=== PATIENT | male | born 1955 | race Caucasian/White ===

== ENCOUNTER 2019-09-09 14:14 | Inpatient (IN) ==
[2019-09-09] MEDS ORDERED: SODIUM CHLORIDE 0.9% 1,000 ML IV STA (14:29)
[2019-09-09] MEDS ORDERED: ALUM/MAG/SIMETH/LIDO VISC 1:1 30 ML BOTTLE PO STA (14:54)
[2019-09-09] MEDS ORDERED: PANTOPRAZOLE 40 MG VIAL IV STA (14:54)
[2019-09-09] MEDS ORDERED: ONDANSETRON 4 MG/2 ML VIAL IV STA (14:54)
[2019-09-09 15:09] LABS: Basophils # 0.1 10*3/uL (0.0-0.2); Basophils % 1.4 % (0.0-0.8); Eosinophils # 0.4 10*3/uL (0.0-0.87); Eosinophils % 5.9 % (0.00-10.9); Hematocrit 45.7 VOL% (42.0-52.0); Hemoglobin 15.4 GM/DL (14.0-18.0); Immature Granulocytes % 0.6 %; Immature Granulocytes Absolute 0.04 #; Lymphocytes # 2.9 10*3/uL (1.4-4.0); Lymphocytes % 43.6 % (21.2-54.2); Mean Corpuscular HGB Conc 33.7 GM/DL (32-36); Mean Corpuscular Volume 93.1 FL (87-102); Mean Platelet Volume 10.3 FL (9.6-12.0); Monocytes % 7.2 % (1.7-12.7); Neutrophils % 41.3 % (38.7-73.9); Platelet Count 176 T/CUMM (130-400); Red Blood Count 4.91 MC/CUMM (3.8-5.5); Red Cell Distribution Width 12.8 % (9.3-17.3); White Blood Count 6.6 T/CUMM (4-12)
[2019-09-09 15:27] LABS: Bilirubin,Total 2.5 MG/DL (0.2-1.0); Calcium 9.2 MG/DL (8.5-10.1); Osmolality,Calculated 289.3 MOS/KG (273-304); Total Protein 7.4 G/DL (6.4-8.3)
[2019-09-09 18:26] LABS: Apearance,Urine CLEAR (Clear); Bilirubin,Urine Negative (Negative); Blood, Urine Negative (Negative); Calcium Oxalate Crystals,Urine Occasional /HPF (Few); Glucose,Urine (UA) Negative (Negative); Hyaline Casts,Urine 17 /LPF (0-3); Ketones,Urine Negative (Negative); Mucus,Urine Occasional /LPF (Occasional); Nitrite,Urine Negative (Negative); Protein,Urine Negative; RBC,Urine 2 /HPF (0-4); Squamous Epithelial Cell,Urine Occasional /HPF (0-10); Urine Color Yellow (Yellow); Urine Specific Gravity 1.034 (1.001-1.035); WBC,Urine 2 /HPF (0-6)
[2019-09-09] MEDS ORDERED: MORPHINE 4 MG/1 ML VIAL IV PRN (18:37)
[2019-09-09] MEDS ORDERED: ACETAMINOPHEN 325 MG TABLET PO PRN (18:37)
[2019-09-09] MEDS ORDERED: ONDANSETRON 4 MG/2 ML VIAL IV PRN (18:37)
[2019-09-09] MEDS ORDERED: LORazepam 2 MG/1 ML VIAL IV PRN (18:41)
[2019-09-09 20:35] LABS: CKMB % 3.4 %; Troponin I < 0.015 NG/ML (0.00-0.045)
[2019-09-09] MEDS: MULTIVITAMIN INJ 10 ML in SODIUM CHLORIDE 0.9% 1,000 ML IV SCH (20:43)
[2019-09-09] MEDS: SODIUM CHLORIDE 0.9% 1,000 ML IV SCH (20:43)
[2019-09-09 21:25] LABS: Apearance,Urine CLEAR (Clear); Bilirubin,Urine Negative (Negative); Blood, Urine Negative (Negative); Glucose,Urine (UA) Negative (Negative); Hyaline Casts,Urine 1 /LPF (0-3); Ketones,Urine Negative (Negative); Mucus,Urine Occasional /LPF (Occasional); Nitrite,Urine Negative (Negative); Protein,Urine Negative; RBC,Urine 1 /HPF (0-4); Squamous Epithelial Cell,Urine Occasional /HPF (0-10); Urine Color Yellow (Yellow); Urine Specific Gravity 1.043 (1.001-1.035); Urine Urobilinogen < 2.0 EU/DL (0.2-1.0); WBC,Urine <1 /HPF (0-6)
[2019-09-09] MEDS: CIPROFLOXACIN INJ 200 MG in PREMIX 1 EACH IV SCH (21:58)
[2019-09-09] MEDS: metroNIDAZOLE INJ 500 MG in PREMIX 1 EACH IV SCH (21:58)
[2019-09-10] MEDS: SODIUM CHLORIDE 0.9% 1,000 ML IV SCH ×4 (06:31→21:05)
[2019-09-10] MEDS: metroNIDAZOLE INJ 500 MG in PREMIX 1 EACH IV SCH ×3 (06:34→19:49)
[2019-09-10 06:36] LABS: Albumin 3.5 G/DL (3.4-5.0); Bilirubin,Total 2.1 MG/DL (0.2-1.0); Calcium 8.7 MG/DL (8.5-10.1); Osmolality,Calculated 287.1 MOS/KG (273-304); Risk Ratio 3.79; Total Protein 6.8 G/DL (6.4-8.3); Troponin I < 0.015 NG/ML (0.00-0.045); VLDL CHOLESTEROL 30.2 MG/DL
[2019-09-10 07:03] LABS: Eosinophils # 0.2 10*3/uL (0.0-0.87); Eosinophils % 5.1 % (0.00-10.9); Hematocrit 41.1 VOL% (42.0-52.0); Hemoglobin 13.5 GM/DL (14.0-18.0); Immature Granulocytes % 0.3 %; Immature Granulocytes Absolute 0.01 #; Lymphocytes # 1.2 10*3/uL (1.4-4.0); Lymphocytes % 40.2 % (21.2-54.2); Mean Corpuscular HGB Conc 32.8 GM/DL (32-36); Mean Corpuscular Volume 94.9 FL (87-102); Mean Platelet Volume 10.1 FL (9.6-12.0); Monocytes % 6.4 % (1.7-12.7); Red Blood Count 4.33 MC/CUMM (3.8-5.5); Red Cell Distribution Width 12.8 % (9.3-17.3)
[2019-09-10 07:04] LABS: Platelet Count 87 T/CUMM (130-400)
[2019-09-10 07:38] LABS: Hypochromasia 1+
[2019-09-10 07:39] LABS: Platelet Estimate Decreased
[2019-09-10] MEDS: CIPROFLOXACIN INJ 200 MG in PREMIX 1 EACH IV SCH ×2 (08:40→20:57)
[2019-09-10] MEDS: THIAMINE 200 MG/2 ML VIAL IV SCH (08:40)
[2019-09-10] MEDS: FOLIC ACID INJ 1 MG in SYRINGE 1 EACH IV SCH (08:41)
[2019-09-10] MEDS: PANTOPRAZOLE 40 MG VIAL IV SCH (08:41)
[2019-09-10] MEDS ORDERED: DEXTROSE 10% 25 GM/250 ML BAG IV PRN (09:02)
[2019-09-10] MEDS ORDERED: GLUCAGON 1 MG VIAL IM PRN (09:02)
[2019-09-10] MEDS ORDERED: BISACODYL 5 MG TABLET PO ONE (12:00)
[2019-09-10] MEDS ORDERED: POLYETHYLENE GLYCOL POWDER 255 GM BOTTLE PO ONE (13:00)
[2019-09-10] MEDS: INSULIN REGULAR 100 UNIT/ML SUBCUT SCH ×2 (13:45→18:27)
[2019-09-10] MEDS: carvediloL 6.25 MG TABLET PO SCH ×2 (14:51→17:35)
[2019-09-10] MEDS ORDERED: HYDROCORTISONE 2.5% RECTAL CREAM 30 GM TUBE TOP PRN (17:03)
[2019-09-10] MEDS ORDERED: MAGNESIUM CITRATE 300 ML BOTTLE PO ONE (21:00)
[2019-09-10] MEDS: SIMVASTATIN 10 MG TABLET PO SCH (21:22)
[2019-09-10] MEDS: MULTIVITAMIN INJ 10 ML in SODIUM CHLORIDE 0.9% 1,000 ML IV SCH (22:57)
[2019-09-11] MEDS: INSULIN REGULAR 100 UNIT/ML SUBCUT SCH ×4 (00:54→17:18)
[2019-09-11 05:57] LABS: Basophils % 0.8 % (0.0-0.8); Eosinophils # 0.2 10*3/uL (0.0-0.87); Eosinophils % 7.2 % (0.00-10.9); Hematocrit 38.8 VOL% (42.0-52.0); Hemoglobin 12.9 GM/DL (14.0-18.0); Immature Granulocytes % 0.4 %; Immature Granulocytes Absolute 0.01 #; Lymphocytes # 1.1 10*3/uL (1.4-4.0); Lymphocytes % 48.1 % (21.2-54.2); Mean Corpuscular HGB Conc 33.2 GM/DL (32-36); Mean Corpuscular Volume 93.5 FL (87-102); Mean Platelet Volume 10.5 FL (9.6-12.0); Monocytes % 8.4 % (1.7-12.7); Neutrophils % 35.1 % (38.7-73.9); Red Blood Count 4.15 MC/CUMM (3.8-5.5); Red Cell Distribution Width 12.5 % (9.3-17.3); White Blood Count 2.4 T/CUMM (4-12)
[2019-09-11 06:04] LABS: PT Patient Result 11.3 SECS (9.6-12.2)
[2019-09-11 06:05] LABS: Platelet Count 70 T/CUMM (130-400)
[2019-09-11 06:12] LABS: Albumin 3.3 G/DL (3.4-5.0); Bilirubin,Total 2.5 MG/DL (0.2-1.0); Calcium 8.7 MG/DL (8.5-10.1); Osmolality,Calculated 280.3 MOS/KG (273-304); Total Protein 6.7 G/DL (6.4-8.3)
[2019-09-11 06:25] LABS: Eosinophils 10 % (0-10); Hypochromasia 1+; Lymphocytes 42 % (20-55); Segmented Neutrophils 40 % (50-85); Total Cells Counted 100
[2019-09-11 06:26] LABS: Microcytosis Slight; Ovalocytes Slight; Platelet Estimate Decreased
[2019-09-11 06:27] LABS: Atypical Lymphocytes Few
[2019-09-11] MEDS: SODIUM CHLORIDE 0.9% 1,000 ML IV SCH ×3 (06:46→17:23)
[2019-09-11] MEDS: metroNIDAZOLE INJ 500 MG in PREMIX 1 EACH IV SCH ×3 (06:46→20:39)
[2019-09-11] MEDS ORDERED: LACTATED RINGERS 1,000 ML IV SCH (08:00)
[2019-09-11] MEDS: FOLIC ACID INJ 1 MG in SYRINGE 1 EACH IV SCH (09:25)
[2019-09-11] MEDS: PANTOPRAZOLE 40 MG VIAL IV SCH (09:26)
[2019-09-11] MEDS: carvediloL 6.25 MG TABLET PO SCH ×2 (09:27→17:19)
[2019-09-11] MEDS ORDERED: ETOMIDATE 20 MG/10 ML VIAL IV ONE (10:00)
[2019-09-11] MEDS ORDERED: LIDOCAINE 2% 5 ML VIAL ONE (10:00)
[2019-09-11] MEDS ORDERED: PROPOFOL 200 MG/20 ML VIAL IV ONE (10:00)
[2019-09-11] MEDS: THIAMINE 200 MG/2 ML VIAL IV SCH (10:27)
[2019-09-11] MEDS: CIPROFLOXACIN INJ 200 MG in PREMIX 1 EACH IV SCH ×2 (10:27→22:39)
[2019-09-11] MEDS ORDERED: DEXTROSE 10% 25 GM/250 ML BAG IV PRN (13:05)
[2019-09-11] MEDS: SIMVASTATIN 10 MG TABLET PO SCH (20:39)
[2019-09-11] MEDS: MULTIVITAMIN INJ 10 ML in SODIUM CHLORIDE 0.9% 1,000 ML IV SCH (22:40)
[2019-09-12] MEDS: INSULIN REGULAR 100 UNIT/ML SUBCUT SCH ×3 (01:54→13:26)
[2019-09-12 05:46] LABS: Basophils % 0.9 % (0.0-0.8); Eosinophils # 0.1 10*3/uL (0.0-0.87); Eosinophils % 5.2 % (0.00-10.9); Hematocrit 38.8 VOL% (42.0-52.0); Hemoglobin 12.9 GM/DL (14.0-18.0); Immature Granulocytes % 0.4 %; Immature Granulocytes Absolute 0.01 #; Lymphocytes # 0.9 10*3/uL (1.4-4.0); Lymphocytes % 38.5 % (21.2-54.2); Mean Corpuscular HGB Conc 33.2 GM/DL (32-36); Mean Corpuscular Volume 93.7 FL (87-102); Mean Platelet Volume 10.8 FL (9.6-12.0); Monocytes % 8.7 % (1.7-12.7); Neutrophils % 46.3 % (38.7-73.9); Red Blood Count 4.14 MC/CUMM (3.8-5.5); Red Cell Distribution Width 12.5 % (9.3-17.3); White Blood Count 2.3 T/CUMM (4-12)
[2019-09-12 05:48] LABS: Platelet Count 68 T/CUMM (130-400)
[2019-09-12] MEDS: metroNIDAZOLE INJ 500 MG in PREMIX 1 EACH IV SCH ×2 (05:49→13:26)
[2019-09-12] MEDS: SODIUM CHLORIDE 0.9% 1,000 ML IV SCH ×2 (05:53→13:26)
[2019-09-12 06:05] LABS: Albumin 3.2 G/DL (3.4-5.0); Bilirubin,Total 1.9 MG/DL (0.2-1.0); Calcium 8.6 MG/DL (8.5-10.1); Osmolality,Calculated 277.5 MOS/KG (273-304); Total Protein 6.4 G/DL (6.4-8.3)
[2019-09-12 06:24] LABS: Platelet Estimate Decreased; Polychromasia Few
[2019-09-12] MEDS: carvediloL 6.25 MG TABLET PO SCH (08:53)
[2019-09-12] MEDS: FOLIC ACID INJ 1 MG in SYRINGE 1 EACH IV SCH ×2 (08:56→09:12)
[2019-09-12] MEDS: PANTOPRAZOLE 40 MG VIAL IV SCH (08:57)
[2019-09-12] MEDS: CIPROFLOXACIN INJ 200 MG in PREMIX 1 EACH IV SCH (08:57)
[2019-09-12] MEDS: THIAMINE 200 MG/2 ML VIAL IV SCH (08:58)
[2019-09-12 11:50] VITALS: BP 152/88
== END 2019-09-12 12:40 | disposition home or self-care (01) | DRG 684 ==
LOC: N.ED 14:14 → N.EDINP 18:36 → N.3E 19:18
PROVIDERS: ADMIT Internal Medicine; ATTEND Internal Medicine